=== PATIENT | female | born 1955 | race Caucasian/White ===

== ENCOUNTER 2024-10-01 06:20 | Day surgery (SDC) | payer MEDICARE, OTHER ==
[2024-10-01 06:54] LABS: HEMATOCRIT 38.4 % (34.3-46.0); HEMOGLOBIN 12.7 g/dL (11.2-15.5); MEAN CORPUSCULAR HEMOGLOBIN 31.2 pg (31.6-35.5); MEAN CORPUSCULAR HGB CONC 33.1 g/dL (31.6-35.5); MEAN CORPUSCULAR VOLUME 94.3 fL (81.4-99.0); RED BLOOD CELL COUNT 4.07 M/uL (3.77-5.24); WHITE BLOOD CELL COUNT,WBC 3.9 K/uL (3.2-11.0)
[2024-10-01] MEDS ORDERED: Propofol 200 MG/20 ML SDV ONE (06:59)
[2024-10-01] MEDS ORDERED: Dexamethasone 4 MG/ML SDV ONE (06:59)
[2024-10-01] MEDS ORDERED: Ondansetron 4 MG/2 ML SDV ONE (06:59)
[2024-10-01] MEDS ORDERED: fentaNYL 250 MCG/5 ML SDV ONE (07:00)
[2024-10-01] MEDS: Lactated Ringers 1,000 ML IV SCH (07:06)
[2024-10-01 07:09] LABS: ANION GAP 10.4 mmol/L (5.0-14.0); CALCIUM 9.6 mg/dL (8.5-10.1); CREATININE 0.7 mg/dL (0.6-1.0); EST CRCL DRUG DOSING (CG) 53.43 mL/min; POTASSIUM,K 3.4 mmol/L (3.6-5.2)
[2024-10-01] MEDS: Scopalamine 1mg/3day Transdermal Patch TOP ONE (07:09)
[2024-10-01] MEDS: ceFAZolin 2 GM in Premix Bag 1 BAG IV ONE (07:30)
[2024-10-01] MEDS: Bupivacaine 0.25%/EPINEPHrine 1:200,000 30 ML SDV ONE (08:04)
[2024-10-01] MEDS ORDERED: Ketorolac 30 MG/ML SDV ONE (08:18)
[2024-10-01] MEDS ORDERED: VERIFY SCOP PATCH TOP SCH (16:00)
== END 2024-10-01 12:30 | disposition home or self-care (01) ==
LOC: JP.SDS 06:20
PROVIDERS: ATTEND Surgery
DX: K41.90 Unilateral femoral hernia, without obstruction or gangrene, not specified as recurrent (principal); Z88.5 Allergy status to narcotic agent
CPT/HCPCS: 36415; 49550; 80048; 85027; A9270; C1781; J0690; J1100; J1885; J2405; J2704; J3010; J7120